=== PATIENT | male | born 2000 | race Two or more races ===

== ENCOUNTER 2024-02-19 22:40 | Emergency (ER) | payer OTHER ==
[~2024-02-19] VITALS: Ht 188 cm; Wt 108.9 kg
[~2024-02-19 22:40] MED LIST: PEPCID AC20 MG PO
[2024-02-20] MEDS ORDERED: IBUprofen 800 MG TABLET PO STA (00:40)
[2024-02-20] MEDS ORDERED: KETOROLAC TROMETHAMINE 10 MG TABLET PO ONE (00:50)
[2024-02-20] MEDS ORDERED: KETOROLAC TROMETHAMINE 10 MG TABLET PO STA (00:52)
== END 2024-02-20 02:05 | disposition home or self-care (01) ==
LOC: ER 22:40
DX: S62.318A Displaced fracture of base of other metacarpal bone, initial encounter for closed fracture (principal); W23.0XXA Caught, crushed, jammed, or pinched between moving objects, initial encounter; Y93.9 Activity, unspecified; Y92.019 Unspecified place in single-family (private) house as the place of occurrence of the external cause; Y99.9 Unspecified external cause status